=== PATIENT | male | born 1955 | race Caucasian/White ===

== ENCOUNTER → 2020-08-23 10:50 | Outpatient (BNVA) | payer MEDICARE, MEDICAID, SELFPAY | PROVIDERS: PCP Internal Medicine; Referring Provider Internal Medicine; Visit Provider Hospitalist | DX: J44.9 Chronic obstructive pulmonary disease, unspecified (principal); J96.11 Chronic respiratory failure with hypoxia; Z79.899 Other long term (current) drug therapy; Z99.81 Dependence on supplemental oxygen | CPT/HCPCS: 99212 ==

== ENCOUNTER → 2020-10-25 13:03 | Outpatient (BNVA) | payer MEDICARE, MEDICAID, SELFPAY | PROVIDERS: PCP Internal Medicine; Visit Provider Hospitalist | DX: Z76.89 Persons encountering health services in other specified circumstances (principal) | CPT/HCPCS: Q3014 ==

== ENCOUNTER → 2020-12-23 13:03 | Outpatient (BNVA) | payer MEDICARE, MEDICAID, SELFPAY | PROVIDERS: PCP Internal Medicine; Visit Provider Hospitalist | DX: Z13.89 Encounter for screening for other disorder (principal) | CPT/HCPCS: Q3014 ==

== ENCOUNTER → 2021-02-03 14:08 | Outpatient (BNVA) | payer MEDICARE, MEDICAID, SELFPAY | PROVIDERS: PCP Internal Medicine; Visit Provider Hospitalist | DX: J96.11 Chronic respiratory failure with hypoxia (principal); J41.8 Mixed simple and mucopurulent chronic bronchitis; B94.8 Sequelae of other specified infectious and parasitic diseases | CPT/HCPCS: 99212 ==

== ENCOUNTER → 2021-03-03 14:31 | Outpatient (BNVA) | payer MEDICARE, MEDICAID, SELFPAY | PROVIDERS: PCP Internal Medicine; Visit Provider Hospitalist | DX: B94.8 Sequelae of other specified infectious and parasitic diseases (principal); U07.1 COVID-19; J41.8 Mixed simple and mucopurulent chronic bronchitis; J96.11 Chronic respiratory failure with hypoxia | CPT/HCPCS: 99212 ==

== ENCOUNTER → 2021-12-08 14:33 | Outpatient (BNVA) | payer MEDICARE, MEDICAID, SELFPAY | PROVIDERS: PCP Internal Medicine; Visit Provider Hospitalist | DX: J44.1 Chronic obstructive pulmonary disease with (acute) exacerbation (principal); J96.11 Chronic respiratory failure with hypoxia; U09.9 Post COVID-19 condition, unspecified | CPT/HCPCS: 94640; 99212 ==

== ENCOUNTER → 2022-01-19 14:38 | Outpatient (BNVA) | payer MEDICARE, MEDICAID, SELFPAY | PROVIDERS: PCP Internal Medicine; Visit Provider Hospitalist | DX: J44.1 Chronic obstructive pulmonary disease with (acute) exacerbation (principal); J96.11 Chronic respiratory failure with hypoxia; B94.8 Sequelae of other specified infectious and parasitic diseases; Z87.891 Personal history of nicotine dependence | CPT/HCPCS: 99212 ==

== ENCOUNTER → 2022-03-23 13:39 | Outpatient (BNVA) | payer MEDICARE, MEDICAID, SELFPAY | PROVIDERS: PCP Internal Medicine; Visit Provider Hospitalist | DX: J44.1 Chronic obstructive pulmonary disease with (acute) exacerbation (principal); U09.9 Post COVID-19 condition, unspecified; J96.11 Chronic respiratory failure with hypoxia; J30.9 Allergic rhinitis, unspecified; Z99.81 Dependence on supplemental oxygen | CPT/HCPCS: 99212 ==

== ENCOUNTER → 2022-07-21 13:57 | Outpatient (BNVA) | payer MEDICARE, MEDICAID, SELFPAY | PROVIDERS: PCP Internal Medicine; Visit Provider Hospitalist | DX: J44.1 Chronic obstructive pulmonary disease with (acute) exacerbation (principal); J96.11 Chronic respiratory failure with hypoxia; U09.9 Post COVID-19 condition, unspecified; J30.9 Allergic rhinitis, unspecified; Z79.899 Other long term (current) drug therapy; Z99.81 Dependence on supplemental oxygen | CPT/HCPCS: 99212 ==

== ENCOUNTER 2023-04-30 13:36 | Outpatient (AMB) | payer MEDICARE, MEDICAID, SELFPAY ==
[2023-04-30 14:21] VITALS: BP 138/90; PULSE 76; O2SAT 93; BMI 26.6
--- NOTE | 2023-04-30 14:21 | A.OFFVIS_ITS ---
Intake Vital Signs 04/30/23 14:21 Height 5 ft 7 in Weight 170 lb BMI 26.6 BP 138/90 H Blood Pressure Location Rt brachial Position Sitting Pulse 76 Pulse Source Pulse Oximeter Pulse Oximetry (%) 93 Oxygen Delivery Method Room Air Intake Visit Reasons: Shortness of breath follow-up Personnel Monitor Required: No Allergies albuterol [From Combivent] Allergy (Severe, Verified 04/30/23 14:24) Difficulty Breathing ipratropium [From Combivent] Allergy (Severe, Verified 04/30/23 14:24) Difficulty Breathing roflumilast [From Daliresp] Allergy (Severe, Verified 04/30/23 14:24) Diarrhea HPI HPI Comments History of Present Illness Details The patient is a 67-year-old gentleman known COPD. He has significant obstruction based on pulmonary function studies. Has been having increasing shortness of breath. Moderate severity. He also complains of thick mucus that he is expectorating. It is clear in color. He typically responds well to doxycycline. He has been using his on oral also has Flovent daily. He has required a short-acting beta agonist more often due to the increased wheezing and chest tightness. He describes it as sometimes he has good days symptoms as bad days. He did start working and he is hoping a gentleman with the a terminal condition. 03/23/2022 the patient is here for a pulmonary follow-up visit. He still struggling to breathe. He gets very short of breath with any activity. He did try the Daliresp but he did not tolerated due to the adverse effects of diarrhea. He also was placed on budesonide but did not tolerated due to the irritation of the upper airway. He continues on Bevespi with partial improvement. I will change it to Breztri hoping that he would get a better response. In addition to this the patient does have significant wheezing on examination. He will need to go back on prednisone and taper down to 5 mg. the patient has been using his scooter to get around. He has been tested in the past for oxygen requirements in the patient has not qualify. Will reassess the next time he visits. He is also having significant allergies. This is likely contributing to his breathing issues. He does have nasal congestion. Will go ahead and start him on some nasal therapy to try to help him with this. 07/21/2022 the patient is here for a pulmonary follow-up visit. He continues to complain about his breathing. He has a hard time breathing when at rest. Moderate severity. However, not using his oxygen and also he does not always use the Bevespi twice a day. There was a nebulizer has not been using it. The tried to emphasize in that needs to make sure that he uses all his medications to try to improve his respiratory capacity. In addition to that oxygen supplementation will provide him with some relief as well. The patient also has a cough. Productive in nature. [id number] severity. the patient has not had any recent imaging studies. Therefore I did request that he have a chest x-ray when able. She cannot do it today but will come back for it. 04/30/2023 the patient is here for a pulmonary follow-up visit. Overall he has been doing fairly well. He stated home most of the winter and also the spring. He is trying to minimize exposure since he is doing little better. The patient continues uses respiratory therapy. He has been complaining of worsening cough and chest tightness even with minimal activity. The Breztri inhaler has for, part, does not last 12 hours. Therefore he struggles in between. He is wondering if he can use it more often. The patient does have increased chest tightness and wheezing and has a very prolonged expiratory phase. This is in part due to his severe COPD. Will go ahead and start him on Flovent that he can use twice a day to increase his inhaled steroids. He can also uses ProAir twice a day along with the Flovent. The patient already tried and failed Combivent in addition to Daliresp. 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 Social History (Updated 12/08/21 @ 14:46 by NAKIA Quintero) Patient Tobacco Use Status: Former Tobacco user Tobacco use type: Cigarette Years Smoked: 23 years Review of Systems Const Denies night sweats ENT Denies change in voice, Denies lip swelling, Denies mouth pain, Reports nasal congestion, Reports nasal discharge and Denies tongue swelling Card Denies chest pain and Reports dyspnea on exertion Resp Reports chest congestion, Reports cough, Reports dyspnea on exertion and Reports wheezing GI Denies abdominal pain Musc Denies no additional complaints Neuro Denies Neuro-related abnormal movements Psych Denies no additional complaints Balwinder/Lymph Denies easy bleeding and Denies lymphadenopathy Aller/Immun Denies lip swelling, Denies tongue swelling and Reports wheezing Physical Exam Vital Signs: Last Vital Signs Pulse 76 04/30/23 14:21 BP 138/90 H 04/30/23 14:21 Pulse Ox 93 04/30/23 14:21 Oxygen Delivery Method Room Air 04/30/23 14:21 BMI result Body Mass Index 26.6 Const General: alert Neck Neck: Yes normal visual inspection, Yes full ROM and Yes no lymphadenopathy Chest Chest palpation & inspection: normal inspection of the chest Resp Effort & Inspection: prolonged expiratory phase Auscultation: wheezes and diminished lung sounds Cardio Rate: regular rate Rhythm: regular rhythm Heart sounds: S1 normal heart sound present and S2 normal heart sound present GI Palpation (GI): Soft to palpation and nontender Auscultation: normal bowel sounds Skin General skin exam: rashes and/or lesions noted Assessment & Plan Assessment & Plan (1) COPD (chronic obstructive pulmonary disease): Code(s): J44.9 - Chronic obstructive pulmonary disease, unspecified Qualifiers: COPD type: COPD with acute exacerbation Qualified Code(s): J44.1 - Chronic obstructive pulmonary disease with (acute) exacerbation (2) Chronic respiratory failure: Code(s): J96.10 - Chronic respiratory failure, unspecified whether with hypoxia or hypercapnia Qualifiers: Respiratory failure complication: hypoxia Qualified Code(s): J96.11 - Chronic respiratory failure with hypoxia (3) Chronic allergic rhinitis: Code(s): J30.9 - Allergic rhinitis, unspecified Plan continue Breztri Add Flovent BID HECTOR as needed Bloodwork continue oxygen supplementation Continue DuoNeb up to 4 times a day Flonase/astelin nasal spray F/U 3-4 months Orders: Orders Complete Blood Count Auto Diff Today J30.9 - Allergic rhinitis, unspecified Erythrocyte Sedimentation Rate Today J30.9 - Allergic rhinitis, unspecified Medications: New fluticasone propionate 110 mcg/actuation (Flovent HFA) 2 puffs inhalation BID 3 0 days 12 grams 6RF Coding Level of Care Code Est Pt Level 4 (63487) Diagnoses COPD (chronic obstructive pulmonary disease) J44.1 COPD type: COPD with acute exacerbation Chronic respiratory failure J96.11 Respiratory failure complication: hypoxia Chronic allergic rhinitis J30.9 Time Spent (min) 20
== END 2023-04-30 14:54 | disposition home or self-care (01) ==
PROVIDERS: PCP Internal Medicine; Visit Provider Hospitalist
DX: J44.1 Chronic obstructive pulmonary disease with (acute) exacerbation (principal); J96.11 Chronic respiratory failure with hypoxia; J30.9 Allergic rhinitis, unspecified
CPT/HCPCS: 99214

== ENCOUNTER → 2023-04-30 13:36 | Outpatient (BNVA) | payer MEDICARE, MEDICAID, SELFPAY | PROVIDERS: PCP Internal Medicine; Visit Provider Hospitalist | DX: J96.11 Chronic respiratory failure with hypoxia (principal); J44.1 Chronic obstructive pulmonary disease with (acute) exacerbation; J30.9 Allergic rhinitis, unspecified; Z87.891 Personal history of nicotine dependence | CPT/HCPCS: 99212 ==

== ENCOUNTER 2023-08-09 14:02 | Outpatient (AMB) | payer MEDICARE, MEDICAID, SELFPAY ==
[2023-08-09 14:20] VITALS: PULSE 89; O2SAT 91; BMI 25.7
--- NOTE | 2023-08-09 14:20 | MHC.OFFVIS ---
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 He has significant obstruction based on pulmonary function studies. Has been having increasing shortness of breath. Moderate severity. He also complains of thick mucus that he is expectorating. It is clear in color. He typically responds well to doxycycline. He has been using his on oral also has Flovent daily. He has required a short-acting beta agonist more often due to the increased wheezing and chest tightness. He describes it as sometimes he has good days symptoms as bad days. He did start working and he is hoping a gentleman with the a terminal condition. 03/23/2022 the patient is here for a pulmonary follow-up visit. He still struggling to breathe. He gets very short of breath with any activity. He did try the Daliresp but he did not tolerated due to the adverse effects of diarrhea. He also was placed on budesonide but did not tolerated due to the irritation of the upper airway. He continues on Bevespi with partial improvement. I will change it to Breztri hoping that he would get a better response. In addition to this the patient does have significant wheezing on examination. He will need to go back on prednisone and taper down to 5 mg. the patient has been using his scooter to get around. He has been tested in the past for oxygen requirements in the patient has not qualify. Will reassess the next time he visits. He is also having significant allergies. This is likely contributing to his breathing issues. He does have nasal congestion. Will go ahead and start him on some nasal therapy to try to help him with this. 07/21/2022 the patient is here for a pulmonary follow-up visit. He continues to complain about his breathing. He has a hard time breathing when at rest. Moderate severity. However, not using his oxygen and also he does not always use the Bevespi twice a day. There was a nebulizer has not been using it. The tried to emphasize in that needs to make sure that he uses all his medications to try to improve his respiratory capacity. In addition to that oxygen supplementation will provide him with some relief as well. The patient also has a cough. Productive in nature. [id number] severity. the patient has not had any recent imaging studies. Therefore I did request that he have a chest x-ray when able. She cannot do it today but will come back for it. 04/30/2023 the patient is here for a pulmonary follow-up visit. Overall he has been doing fairly well. He stated home most of the winter and also the spring. He is trying to minimize exposure since he is doing little better. The patient continues uses respiratory therapy. He has been complaining of worsening cough and chest tightness even with minimal activity. The Breztri inhaler has for, part, does not last 12 hours. Therefore he struggles in between. He is wondering if he can use it more often. The patient does have increased chest tightness and wheezing and has a very prolonged expiratory phase. This is in part due to his severe COPD. Will go ahead and start him on Flovent that he can use twice a day to increase his inhaled steroids. He can also uses ProAir twice a day along with the Flovent. The patient already tried and failed Combivent in addition to Daliresp. 08/09/2023 the patient is here for a pulmonary follow-up visit. The patient has been having persistent dyspnea on exertion. He also feels weak. He continues on the breast tree inhaler. He also has been on the Flovent. We talked about the importance of the nebulized therapy. Will provide him with nebulized medication in order for him to continue to use it 2 to 4 times a day. He has significant airway obstruction with a very prolonged expiratory phase. He also would benefit from pulmonary rehabilitation but is not interested at this time. I did give him the web site for the online pulmonary rehabilitation that he will find helpful. [facility] Medical History (Updated 04/30/23 @ 23:43 by Celio Gonzalez MD) Chronic allergic rhinitis [id number] syndrome COVID-19 Chronic respiratory failure COPD (chronic obstructive pulmonary disease) Social History (Updated 12/08/21 @ 14:46 by NAKIA Quintero) Patient Tobacco Use Status: Former Tobacco user Tobacco use type: Cigarette Years Smoked: 23 years Review of Systems Const Denies night sweats ENT Denies change in voice, Denies lip swelling, Denies mouth pain, Reports nasal congestion, Reports nasal discharge and Denies tongue swelling Card Denies chest pain and Reports dyspnea on exertion Resp Reports chest congestion, Reports cough, Reports dyspnea on exertion and Reports wheezing GI Denies abdominal pain Musc Denies no additional complaints Neuro Denies Neuro-related abnormal movements Psych Denies no additional complaints Balwinder/Lymph Denies easy bleeding and Denies lymphadenopathy Aller/Immun Denies lip swelling, Denies tongue swelling and Reports wheezing Physical Exam Vital Signs: Last Vital Signs Pulse 89 08/09/23 14:20 Pulse Ox 91 L 08/09/23 14:20 Oxygen Delivery Method Room Air 08/09/23 14:20 BMI result Body Mass Index 25.7 Const General: alert Neck Neck: Yes normal visual inspection, Yes full ROM and Yes no lymphadenopathy Chest Chest palpation & inspection: normal inspection of the chest Resp Effort & Inspection: prolonged expiratory phase Auscultation: no wheezes and diminished lung sounds Cardio Rate: regular rate Rhythm: regular rhythm Heart sounds: S1 normal heart sound present and S2 normal heart sound present GI Palpation (GI): Soft to palpation and nontender Auscultation: normal bowel sounds Skin General skin exam: rashes and/or lesions noted Assessment & Plan Assessment & Plan (1) COPD (chronic obstructive pulmonary disease): Code(s): J44.9 - Chronic obstructive pulmonary disease, unspecified Qualifiers: COPD type: COPD with acute exacerbation Qualified Code(s): J44.1 - Chronic obstructive pulmonary disease with (acute) exacerbation (2) Chronic respiratory failure: Code(s): J96.10 - Chronic respiratory failure, unspecified whether with hypoxia or hypercapnia Qualifiers: Respiratory failure complication: hypoxia Qualified Code(s): J96.11 - Chronic respiratory failure with hypoxia (3) Chronic allergic rhinitis: Code(s): J30.9 - Allergic rhinitis, unspecified Plan continue Breztri continue Flovent BID HECTOR as needed Prednisone taper if no better CXR continue oxygen supplementation restart DuoNeb up to 4 times a day Flonase/astelin nasal spray F/U 3-4 months Orders: Orders XR chest 2V 08/09/23 J44.1 - Chronic obstructive pulmonary disease with (acute) exacerbation Medications: New prednisone PO daily; Take 2 tabs daily x 5 days, then 1 tablet daily x 5 days 10 days 15 tabs 0RF J44.1 - Chronic obstructive pulmonary disease with (acute) exacerbation Coding Level of Care Code Est Pt Level 4 (92629) Diagnoses Chronic obstructive pulmonary disease with acute exacerbation J44.1 COPD type: COPD with acute exacerbation Chronic respiratory failure with hypoxia J96.11 Respiratory failure complication: hypoxia Chronic allergic rhinitis J30.9 Time Spent (min) 17
== END 2023-08-09 14:37 | disposition home or self-care (01) ==
PROVIDERS: PCP Internal Medicine; Visit Provider Hospitalist
DX: J44.1 Chronic obstructive pulmonary disease with (acute) exacerbation (principal); J96.11 Chronic respiratory failure with hypoxia; J30.9 Allergic rhinitis, unspecified
CPT/HCPCS: 99214

== ENCOUNTER → 2023-08-09 14:02 | Outpatient (BNVA) | payer MEDICARE, MEDICAID, SELFPAY | PROVIDERS: PCP Internal Medicine; Visit Provider Hospitalist | DX: J44.1 Chronic obstructive pulmonary disease with (acute) exacerbation (principal); J96.11 Chronic respiratory failure with hypoxia; J30.9 Allergic rhinitis, unspecified | CPT/HCPCS: 99212 ==